=== PATIENT | female | born 1960 | race Two or more races ===

== ENCOUNTER → 2018-08-04 | Emergency (ER) | payer OTHER ==
[~2018-08-04] VITALS: Ht 162.6 cm; Wt 72.6 kg
[~2018-08-04] MED LIST: EVISTA60 MG; FOSAMAX70 MG; PREDNISONE20 MG; SYNTHROID150 MCG
== END | disposition home or self-care (01) ==
LOC: ER 16:03
DX: K59.09 Other constipation (principal); R10.32 Left lower quadrant pain

== ENCOUNTER 2022-07-13 13:48 | Outpatient (CLI) | payer OTHER | END 2022-07-13 14:03 | disposition home or self-care (01) | LOC: SONOGRAMA 13:48 | DX: E03.4 Atrophy of thyroid (acquired) (principal) ==

== ENCOUNTER 2022-09-14 09:52 | Emergency (ER) | payer OTHER ==
[~2022-09-14] VITALS: Ht 160 cm; Wt 72.6 kg
== END 2022-09-14 10:57 | disposition home or self-care (01) ==
LOC: ER 09:52
DX: M54.89 Other dorsalgia (principal); Z91.018 Allergy to other foods

== ENCOUNTER 2024-10-03 12:17 | Outpatient (CLI) | payer OTHER | END 2024-10-03 12:18 | disposition home or self-care (01) | LOC: NUCLEAR 12:17 | PROVIDERS: ATTEND Internal Medicine | DX: M81.0 Age-related osteoporosis without current pathological fracture (principal) ==

== ENCOUNTER 2024-12-19 16:59 | Outpatient (CLI) | payer OTHER | END 2024-12-19 17:16 | disposition home or self-care (01) | LOC: RAD 16:59 | PROVIDERS: ATTEND Physical Medicine & Rehabilitation | DX: M54.12 Radiculopathy, cervical region (principal); M62.838 Other muscle spasm ==